=== PATIENT | female | born 1970 | race Caucasian/White ===

== ENCOUNTER → 2018-12-23 10:57 | Outpatient (CLI) | payer MEDICAID, SELFPAY | PROVIDERS: PCP Internal Medicine; Visit Provider Internal Medicine | DX: R07.9 Chest pain, unspecified (principal) | CPT/HCPCS: 93005 ==

== ENCOUNTER → 2019-04-14 09:58 | Outpatient (CLI) | payer MEDICAID, SELFPAY ==
--- NOTE | 2019-04-14 10:02 | MM_ITS ---
PROCEDURE: MM DIG SCREENING MAMM BI W/CAD CLINICAL INDICATION: Routine Screening Mammogram, no history provided COMPARISON: This is baseline exam TECHNIQUE: Standard CC and MLO images were obtained. R2 CAD reviewed. FINDINGS: Scattered fibroglandular densities are seen in both breast. There is faint arterial calcification in each breast. There is no suspicious lesion in either breast and no suspicious microcalcifications. IMPRESSION: Fibrofatty parenchyma with no suspicious lesions seen BI-RAD Category: 2 Benign Finding(s) FOLLOW-UP: 1YR 1 Year Follow-up (A letter has been sent to the patient regarding results of the study.) Dictated by: Dr. Leandro Dubois MD 04/23/2019 11:[address] Leandro Dubois MD in [place] 04/23/2019 11:17
== END ==
PROVIDERS: PCP Internal Medicine; Visit Provider Obstetrics & Gynecology
DX: Z12.31 Encounter for screening mammogram for malignant neoplasm of breast (principal)
CPT/HCPCS: 77067

== ENCOUNTER → 2020-02-08 15:44 | Outpatient (CLI) | payer OTHER, SELFPAY ==
--- NOTE | 2020-02-08 15:49 | XR_ITS ---
PROCEDURE: XR KNEE RT 3V CLINICAL INDICATION: RIGHT KNEE PAIN COMPARISON: No exams were available for comparison FINDINGS: No fracture or dislocation. No lytic or blastic change. There is normal mineralization. The joint spaces are well-preserved. No significant degenerative/arthritic changes. No erosive changes evident. Other findings:None. IMPRESSION: No acute findings. Dictated by: Wojciech Salmon 02/08/2020 15:59 Electronically signed by Wojciech Salmon in [place] 02/08/2020 15:59
== END ==
PROVIDERS: PCP Internal Medicine; Visit Provider Internal Medicine
DX: M25.561 Pain in right knee (principal)
CPT/HCPCS: 73562

== ENCOUNTER 2020-03-22 10:00 | Outpatient (RCR) | payer OTHER, SELFPAY | END 2020-03-22 10:05 | disposition home or self-care (01) | LOC: PT 10:00 | PROVIDERS: Visit Provider Internal Medicine | DX: M25.561 Pain in right knee (principal) | CPT/HCPCS: 97010; 97014; 97035; 97110; 97163; G0283 ==

== ENCOUNTER → 2021-01-11 10:31 | Outpatient (CLI) | payer OTHER, SELFPAY ==
--- NOTE | 2021-01-11 10:34 | MR_ITS ---
PROCEDURE: MR HEAD/BRAIN WO CON CLINICAL INDICATION: VASCULAR HEADACHES Rt sided frontal headaches [id number]. Ringing in ears. COMPARISON: No exams were available for comparison TECHNIQUE: Routine multiplanar multi echo sequences are performed without gadolinium enhancement. FINDINGS: No midline shift, mass effect, intracranial hemorrhage, hydrocephalus. No evidence of acute infarction. The cerebellopontine angles, cerebellum, midbrain and brainstem have unremarkable appearance. The pituitary, optic chiasm, corpus callosum, and craniocervical junction an unremarkable appearance. There is minimal nonspecific T2 white matter hyperintensity along the anterior horn the lateral ventricles. The white matter has an otherwise unremarkable appearance. No mastoid effusion or sinus air-fluid level. There is a small retention cyst in the inferior aspect of the right maxillary sinus. IMPRESSION: Negative MRI of the brain without contrast. No acute finding. Dictated by: Sourav Martinez MD 01/12/2021 11:22 Sourav Martinez MD in [place] 01/12/2021 11:22
== END ==
PROVIDERS: PCP Internal Medicine; Visit Provider Internal Medicine
DX: G44.1 Vascular headache, not elsewhere classified (principal)
CPT/HCPCS: 70551

== ENCOUNTER → 2021-02-05 07:57 | Outpatient (CLI) | payer OTHER, SELFPAY ==
--- NOTE | 2021-02-05 08:00 | US_ITS ---
PROCEDURE: US ABDOMEN COMPLETE CLINICAL INDICATION: ABD PAIN,LUQ PAIN COMPARISON: No exams were available for comparison FINDINGS: PANCREAS: Unremarkable. No obvious mass or abnormal fluid collection. No ductal dilatation LIVER: No focal liver lesions demonstrated. Homogeneous echogenicity. No intrahepatic biliary ductal dilatation evident. There is appropriate direction of blood flow within a non dilated portal vein RIGHT KIDNEY: Unremarkable. Normal size and echogenicity. No hydronephrosis LEFT KIDNEY: Unremarkable. Normal size and echogenicity. No hydronephrosis GALLBLADDER: There are multiple small areas of increased echogenicity along the gallbladder wall with comet tail artifact consistent with adenomyomatosis. No gallstones or gallbladder wall thickening is evident. AORTA: No evidence of aneurysmal dilatation. SPLEEN: Unremarkable. Normal size and echogenicity ASCITES: None demonstrated. IMPRESSION: Adenomyomatosis of the gallbladder otherwise negative complete abdominal ultrasound. No gallstones apparent Dictated by: Sourva Martinez MD 02/05/2021 10:21 Sourav Martinez MD in [facility] 02/05/2021 10:21
--- NOTE | 2021-02-05 08:01 | FL_ITS ---
PROCEDURE: FL UPPER GI W AIR CLINICAL INDICATION: LUQ PAIN,ABD PAIN COMPARISON: No exams were available for comparison TECHNIQUE: FLUOROSCOPY TIME : 1.43 minutes FINDINGS: There is a small sliding hiatal hernia. Non constricting Schatzki's ring is noted. No ulcer or mass is evident. There is some mucosal thickening noted of the duodenal bulb which could be due to duodenitis. Stomach has an unremarkable appearance. IMPRESSION: Small sliding hiatal hernia with non constricting Schatzki's ring. Mucosal thickening of the duodenal bulb suggesting duodenitis. Dictated by: Sourav Martinez MD 02/05/2021 10:11 Sourav Martinez MD in [place] 02/05/2021 10:11
== END ==
PROVIDERS: PCP Internal Medicine; Visit Provider Internal Medicine
DX: R10.12 Left upper quadrant pain (principal); R10.9 Unspecified abdominal pain
CPT/HCPCS: 74246; 76700

== ENCOUNTER → 2021-04-10 16:05 | Outpatient (CLI) | payer OTHER, SELFPAY ==
[2021-04-10 17:30] LABS: Free T4 (Free Thyroxine) 0.95 ng/dl (0.78-2.19)
[2021-04-10 17:46] LABS: Thyroid Stimulating Hormone 1.47 uIU/mL (0.465-4.68)
[2021-04-10 18:20] LABS: Vitamin B12 437 pg/mL (239-931)
[2021-04-10 18:22] LABS: Folate 3.74 ng/mL
== END ==
PROVIDERS: Visit Provider Specialist
DX: R00.2 Palpitations (principal); R25.1 Tremor, unspecified; E83.10 Disorder of iron metabolism, unspecified
CPT/HCPCS: 36415; 82607; 82728; 82746; 84439; 84443

== ENCOUNTER → 2021-04-17 08:36 | Outpatient (CLI) | payer OTHER, SELFPAY ==
--- NOTE | 2021-04-17 08:37 | CA_ITS ---
APPROVED REPORT EXAM: Comprehensive 2D, Doppler, and color-flow Echocardiogram [employer] Instructor: Yadira Schafer CRT Ht: 5 ft 3 in Wt: 161lbs BSA: 1.76 BP: 110/62 mmHg Indications: Palpitations 2D Dimensions LVOT 2.00 cm (M/F) 1.5-2.5 LA Volume 20.00 mL LA Volume Index 11.40 mL/m2 (M/F) 16-34 M-Mode Dimensions RVDd 1.90 cm (0.9-2.6) LA Diam 3.40 cm (1.9-4.0) LVDd 4.60 cm (3.5-5.7) Ao Diam 3.00 cm (2.0-3.7) LVDs 3.00 cm (3.5-5.7) AV Cusp 2.00 cm (1.5-2.6) IVSd 1.00 cm (0.6-1.1) PWd 0.80 cm (0.6-1.1) EF (Teich) 64.00% FS 34.80% EDV (Teich) 97.30 mL ESV (Teich) 35.00 mL LV Diastology E/A Ratio 1.00 MED E' 11.50 (< 7 cm/sec) MED A' 9.75 cm/s E'/MED E' Ratio 7.60 (>14) LAT E' 7.40 (<10 cm/sec) LAT A' 9.36 cm/s E/LAT E' Ratio 11.70 (>14) Aortic Valve AoV Peak Matthew. 137.00 (50-130 cm/s) AO Peak GR. 8.00 mmHg Mitral Valve MV E Max Matthew. 86.90 (40-130 cm/s) MV A Velocity 84.40 (40-130 cm/s) E/A Ratio 1.00 Pulmonary Valve PA Accel Time 190.00 (>120 msec) Tricuspid Valve TR P. Velocity 99.20 cm/s RAP Estimate 10.00 mmHg RVSP 14.00 mmHg Left Ventricle Left atrium is normal size, left ventricle is normal size, there is no concentric left ventricular hypertrophy, visually estimated ejection fraction 55% with no regional wall motion abnormality, diastolic parameters are within normal range. Right Ventricle Right atrium and right ventricle are normal size and contractility. Aortic Valve Aortic valve is grossly normal, there is no aortic stenosis or aortic insufficiency. Mitral Valve Mitral valve grossly normal, there is trace mitral regurgitation. Tricuspid Valve Tricuspid grossly normal, there is trace tricuspid regurgitation, tricuspid regurgitation jet velocity is inadequate for calculation of the right ventricular systolic pressure. Pulmonic Valve Pulmonic valve is poorly visualized. Great Vessels Aortic root is normal size. Inferior vena cava is normal size with normal inspiratory collapse. Pericardium No significant pericardial effusion noted. Conclusion 1. Normal left ventricular size, preserved left ventricular systolic function, visually estimated ejection fraction 55% with no regional wall motion abnormality, diastolic parameters are within normal range. 2. Trace mitral and tricuspid regurgitation. 3. No significant pericardial effusion noted. 4. Inferior vena cava is normal size with normal inspiratory collapse. Electronically signed by : Robert Powell MD 04/17/2021 20:46:52
== END ==
PROVIDERS: PCP Internal Medicine; Visit Provider Specialist
DX: R00.2 Palpitations (principal)
CPT/HCPCS: 93306

== ENCOUNTER → 2021-05-14 15:12 | Outpatient (POV) | payer OTHER, SELFPAY | PROVIDERS: Visit Provider Nurse Practitioner Family | DX: Z00.00 Encounter for general adult medical examination without abnormal findings (principal) ==

== ENCOUNTER → 2021-05-25 14:45 | Outpatient (CLI) | payer OTHER, SELFPAY ==
[2021-05-25 15:40] VITALS: PULSE 85; PULSE 90
== END ==
PROVIDERS: PCP Internal Medicine; Visit Provider Specialist
DX: R06.02 Shortness of breath (principal); R06.00 Dyspnea, unspecified
CPT/HCPCS: 94060; 94618; 94640; 94727; 94729

== ENCOUNTER → 2021-06-11 10:39 | Outpatient (CLI) | payer OTHER, SELFPAY ==
[2021-06-11 10:42] LABS: Coronavirus 19, PCR Not Detected (NotDetected); Influenza A, PCR Not Detected (NotDetected); Influenza B, PCR Not Detected (NotDetected)
== END ==
PROVIDERS: Visit Provider Internal Medicine Gastroenterology
DX: Z20.822 Contact with and (suspected) exposure to COVID-19 (principal)
CPT/HCPCS: C9803; U0003; U0005

== ENCOUNTER → 2021-07-02 13:12 | Outpatient (CLI) | payer OTHER, SELFPAY ==
--- NOTE | 2021-07-02 13:17 | XR_ITS ---
PROCEDURE: XR CHEST 2V CLINICAL HISTORY: productive cough COMPARISON: No exams were available for comparison FINDINGS: The cardiomediastinal silhouette and pulmonary vascularity are within normal limits. The lungs are clear without infiltrates, suspicious nodules, or pleural effusions. No acute bony abnormalities. IMPRESSION: No acute findings. Dictated by: Sourav Martinez MD 07/02/2021 16:05 Sourav Martinez MD in [place] 07/02/2021 16:05
== END ==
PROVIDERS: PCP Internal Medicine; Visit Provider Specialist
DX: R05.9 Cough, unspecified (principal)
CPT/HCPCS: 71046

== ENCOUNTER → 2021-08-27 14:40 | Outpatient (CLI) | payer OTHER, MEDICAID, SELFPAY ==
[2021-08-27 15:20] LABS: Basophils # 0.1 K/mm3 (0-0.2); Basophils % 2.7 % (0.1-2.0); Eosinophils # 0.1 K/mm3 (0.0-0.4); Eosinophils % 2.5 % (0.1-12.0); Hematocrit 46.1 % (37.0-47.0); Hemoglobin 15.1 g/dL (12.2-16.2); Lymphocytes # 2.7 K/mm3 (0.7-4.5); Lymphocytes % 55.4 % (10-50); Mean Corpuscular HGB Conc 32.7 g/dL (31.8-35.4); Mean Corpuscular Hemoglobin 29.6 pg (27.0-31.2); Mean Corpuscular Volume 90.7 fl (81-99); Monocytes # 0.4 K/mm3 (0.1-1.0); Monocytes % 7.4 % (1.7-9.3); Neutrophils # 1.5 K/mm3 (1.8-7.8); Neutrophils % 31.9 % (37.0-80.0); Platelet Count 316 K/mm3 (142-424); Red Blood Count 5.08 M/mm3 (4.20-5.40); Red Cell Distribution Width 14.3 % (11.5-17.5); White Blood Count 4.8 K/mm3 (4.8-10.8)
[2021-08-27 15:24] LABS: MANUAL DIFFERENTIAL MANUAL DIFFERENTIAL (MANUAL DIFF)
[2021-08-27 16:34] LABS: Eosinophils % 3 % (0-3); Lymphocytes % 62 % (10-50); Monocytes % 5 % (2-9); Neutrophils % 29 % (42-76); Platelet Estimate Normal; RBC Morphology Normal; Total Cells Counted 100
[2021-09-01 12:24] LABS: D001-IgE D pteronyssinus <0.10 kU/L (Class 0); D002-IgE D farinae <0.10 kU/L (Class 0); E001-IgE Cat Dander <0.10 kU/L (Class 0); E005-IgE Dog Dander <0.10 kU/L (Class 0); E072-IgE Mouse Urine <0.10 kU/L (Class 0); G002-IgE Bermuda Grass <0.10 kU/L (Class 0); G006-IgE Timothy Grass <0.10 kU/L (Class 0); I006-IgE Cockroach, German <0.10 kU/L (Class 0); Immunoglobulin E, Total 59 IU/mL (6-495); M001-IgE Penicillium chrysogen <0.10 kU/L (Class 0); M002-IgE Cladosporium herbarum <0.10 kU/L (Class 0); M003-IgE Aspergillus fumigatus <0.10 kU/L (Class 0); M006-IgE Alternaria alternata <0.10 kU/L (Class 0); T001-IgE Maple/Box Elder <0.10 kU/L (Class 0); T003-IgE Common Silver Birch <0.10 kU/L (Class 0); T006-IgE Cedar, Mountain <0.10 kU/L (Class 0); T007-IgE Oak, White <0.10 kU/L (Class 0); T008-IgE Elm, American <0.10 kU/L (Class 0); T010-IgE Walnut <0.10 kU/L (Class 0); T011-IgE Maple Leaf Sycamore <0.10 kU/L (Class 0); T014-IgE Cottonwood <0.10 kU/L (Class 0); T015-IgE Ash, White <0.10 kU/L (Class 0); T022-IgE Pecan, Hickory <0.10 kU/L (Class 0); T070-IgE White Mulberry <0.10 kU/L (Class 0); W001-IgE Ragweed, Short <0.10 kU/L (Class 0); W011-IgE Thistle, Russian <0.10 kU/L (Class 0); W014-IgE Pigweed, Common <0.10 kU/L (Class 0); W018-IgE Sheep Sorrel <0.10 kU/L (Class 0)
== END ==
PROVIDERS: PCP Internal Medicine; Visit Provider Internal Medicine Pulmonary Disease
DX: J45.909 Unspecified asthma, uncomplicated (principal)
CPT/HCPCS: 36415; 82785; 85007; 85025; 86003

== ENCOUNTER → 2021-08-31 10:14 | Outpatient (CLI) | payer OTHER, SELFPAY ==
--- NOTE | 2021-08-31 10:19 | XR_ITS ---
FINAL REPORT CLINICAL HISTORY: LEFT ANKLE INJURY on FINDINGS: LEFT ANKLE Three views demonstrate no acute fracture or dislocation. The joint spaces appear normal. The visualized bony structures are well aligned. There is lateral soft tissue swelling. IMPRESSION: No acute process. Reviewed, Interpreted and Dictated by Mike Johnson III, MD Transcribed by Lorenza Carty Authenticated by Mike Johnson III, MD on 08/31/2021 11:59:36 AM [facility]
== END ==
PROVIDERS: PCP Internal Medicine; Visit Provider Internal Medicine
DX: M25.572 Pain in left ankle and joints of left foot (principal); S99.912A Unspecified injury of left ankle, initial encounter
CPT/HCPCS: 73610

== ENCOUNTER → 2022-03-11 10:36 | Outpatient (CLI) | payer OTHER, SELFPAY | PROVIDERS: PCP Internal Medicine; Visit Provider Internal Medicine | DX: Z20.822 Contact with and (suspected) exposure to COVID-19 (principal) | CPT/HCPCS: C9803; U0003; U0005 ==